=== PATIENT | male | born 1975 | race Caucasian/White ===

== ENCOUNTER 2021-07-25 11:48 | Inpatient (IN) | payer MEDICARE, OTHER ==
--- NOTE | 2021-07-25 12:42 | ED ---
General Adult HPI - General Chief complaint: Psychiatric Symptoms Stated complaint: Mental Health Time Seen by Provider: 07/25/21 11:55 Source: patient, RN notes reviewed, old records reviewed Mode of arrival: ambulatory Limitations: no limitations - History of Present Illness Initial comments: This is a 45-year-old male who presents emergency Department in police custody. Please have petitioned the patient because she is been making suicidal statements. Patient states he doesn't feel safe outside anymore. Patient states he feels as though he a few was released to jump into the periphery. Patient states lately he has been having a difficult time sleeping and he hears a voice constantly at night. Patient states during the day he seems to be okay but anytime he lays down he can't get to sleep because his hearing his voice. Patient states he was medicated for similar symptoms years ago but he stopped taking medications and 2017. Patient denies any new physical complaints today. Patient states she does have chronic back pain but that is no different. Patient denies any recent injury. Patient denies any fever chills or cough per patient denies chest pain difficulty breathing shortness of breath. - Related Data Home Medications Medication Instructions Recorded Confirmed No Known Home Medications 07/25/21 07/25/21 Allergies Allergy/AdvReac Type Severity Reaction Status Date / Time No Known Allergies Allergy Verified 07/25/21 12:46 Review of Systems ROS Statement: Those systems with pertinent positive or pertinent negative responses have been documented in the HPI. ROS Other: All systems not noted in ROS Statement are negative. Past Medical History Additional Past Medical History / Comment(s): factor 5 History of Any Multi-Drug Resistant Organisms: None Reported Past Surgical History: No Surgical Hx Reported Past Psychological History: Schizoaffective Disorder Smoking Status: Vaper Past Alcohol Use History: None Reported Past Drug Use History: Marijuana General Exam - General Exam Comments Initial Comments: GENERAL: Patient is well-developed and well-nourished. Patient is nontoxic and well- hydrated and is in no acute distress. ENT: Neck is soft and supple. No significant lymphadenopathy is noted. Oropharynx is clear. Moist mucous membranes. Neck has full range of motion without eliciting any pain. EYES: The sclera were anicteric and conjunctiva were pink and moist. Extraocular movements were intact and pupils were equal round and reactive to light. Eyelids were unremarkable. PULMONARY: Unlabored respirations. Good breath sounds bilaterally. No audible rales rhonchi or wheezing was noted. CARDIOVASCULAR: There is a regular rate and rhythm without any murmurs gallops or rubs. ABDOMEN: Soft and nontender with normal bowel sounds. SKIN: Skin is clear with no lesions or rashes and otherwise unremarkable. NEUROLOGIC: Patient is alert and oriented x3. Cranial nerves II through XII are grossly intact. Motor and sensory are also intact. Normal speech, volume and content. Symmetrical smile. MUSCULOSKELETAL: Normal extremities with adequate strength and full range of motion. LYMPHATICS: No significant lymphadenopathy is noted PSYCHIATRIC: Patient states he is suicidal and fears for his life if he was released. Limitations: no limitations Course Vital Signs 07/25/21 11:51 Temperature 98.1 F Pulse Rate 61 Respiratory 16 Rate Blood Pressure 170/91 O2 Sat by Pulse 97 Oximetry Medical Decision Making - Medical Decision Making EPS evaluated the patient and determined the patient needed to be admitted. - Lab Data Lab Results 07/25/21 07/25/21 Range/Units 12:46 13:48 Urine Opiates Screen Not Detected (NotDetected) Ur Oxycodone Screen Not Detected (NotDetected) Urine Methadone Screen Not Detected (NotDetected) Ur Propoxyphene Screen Not Detected (NotDetected) Ur Barbiturates Screen Not Detected (NotDetected) U Tricyclic Antidepress Not Detected (NotDetected) Ur Phencyclidine Scrn Not Detected (NotDetected) Ur Amphetamines Screen Not Detected (NotDetected) U Methamphetamines Scrn Not Detected (NotDetected) U Benzodiazepines Scrn Not Detected (NotDetected) Urine Cocaine Screen Not Detected (NotDetected) U Marijuana (THC) Screen Detected H (NotDetected) Coronavirus (PCR) Not Detected (Not Detectd) Disposition Clinical Impression: Psychosis, Suicidal ideation Disposition: ADMITTED IP TO THIS HOSP Referrals: None,Stated [Primary Care Provider] - 1-2 days Time of Disposition: 14:44
[2021-07-25 13:19] LABS: Amphetamine Screen,Urine Not Detected (NotDetected); Barbiturate Screen,Urine Not Detected (NotDetected); Benzodiazepines Screen,Urine Not Detected (NotDetected); Cocaine Screen,Urine Not Detected (NotDetected); Methadone Screen, Urine Not Detected (NotDetected); Opiate Screen,Urine Not Detected (NotDetected); Oxycodone Screen, Urine Not Detected (NotDetected); Phencyclidine Screen,Urine Not Detected (NotDetected); Tricyclic Antidepressant,Urine Not Detected (NotDetected); Urn Cannabinoid Scrn Detected (NotDetected)
[2021-07-25] MEDS ORDERED: MAGNESIUM HYDROXIDE 2,400 MG/10 ML CUP PO PRN (15:46)
[2021-07-25] MEDS ORDERED: MAG HYDROX/AL HYDROX/SIMETH 30 ML CUP PO PRN (15:46)
[2021-07-25] MEDS ORDERED: LORazepam 2 MG/ML INJ IM PRN (15:49)
[2021-07-25] MEDS ORDERED: HALOPERIDOL LACTATE 5 MG/ML 1 ML VIAL IM PRN (15:50)
[2021-07-25] MEDS: LORazepam 1 MG TAB PO PRN (18:36)
--- NOTE | 2021-07-25 22:28 | P.CONS ---
History of Present Illness - Reason for Consult Consult date: 07/25/21 - History of Present Illness The patient is a 45 yo M with a PMH of lumbar radiculopathy s/p fusion, factor V leiden, emergency room with complaints of depression and suicidal ideation. The patient states that he is currently homeless, and has been having a difficult time obtaining his medications. He also reports hearing voices occasionally and was planning on hurting himself. He reports chronic long-standing lower back pain, unchanged. He denied any additional complaints. Denied chest pain, SOB, fever, cough, chills, abdominal pain, nausea, vomiting, or diarrhea. Review of systems: Pertinent positives and negatives as discussed in HPI, a complete review of systems was performed and all other systems are negative. Physical examination: General: non toxic, no distress, appears at stated age, obese Derm: no unusual rashes/lesions no unusual ecchymoses, warm, dry Head: atraumatic, normocephalic, symmetric Eyes: EOMI, no lid lag, anicteric sclera, pupils equal round reactive to light ENT: Nose and ears atraumatic, no thrush, no pharyngeal erythema Neck: No thyromegaly, no cervical lymphadenopathy, trachea midline, supple Mouth: no lip lesion, mucus membranes moist Cardiovascular: S1S2 reg, no murmur, positive posterior tibial pulse bilateral, no edema, capillary refill less than 2 seconds Lungs: CTA bilateral, no rhonchi, no rales , no accessory muscle use Abdominal: soft, nontender to palpation, no guarding, no appreciable organomegaly, normal bowel sounds Ext: no gross muscle atrophy, muscle strength 5 out of 5 in all 4 extremities grossly, no contractures, Neuro: CN II-XI grossly intact, light touch intact all 4 extremities, finger to nose within normal limits, Psych: Alert, oriented, appropriate affect Assessment/plan Chronic lower back pain -Patient advised to follow up with his outpatient pain management physician Depression with suicidal ideation -As per psychiatry Thank you for allowing us to participate in the care of this patient. We will follow peripherally. Do not hesitate to contact us with questions. Someone can be reached from the [facility] hospitalist group at all hours of the day at [phone]. Past Medical History Additional Past Medical History / Comment(s): factor 5 History of Any Multi-Drug Resistant Organisms: None Reported Past Surgical History: No Surgical Hx Reported Past Psychological History: Schizoaffective Disorder Smoking Status: Vaper Past Alcohol Use History: None Reported Past Drug Use History: Marijuana - Past Family History Mother Family Medical History: Cancer Medications and Allergies Home Medications Medication Instructions Recorded Confirmed Type No Known Home Medications 07/25/21 07/25/21 History Allergies Allergy/AdvReac Type Severity Reaction Status Date / Time No Known Allergies Allergy Verified 07/25/21 12:46 Physical Exam Vitals: Vital Signs Temp Pulse Pulse Resp BP BP Pulse Ox 07/25/21 17:27 98.7 F 73 16 104/76 07/25/21 15:00 60 18 140/80 98 07/25/21 11:51 98.1 F 61 16 170/91 97 Intake and Output 07/25/21 07/25/21 07/25/21 06:59 14:59 22:59 Other: Weight 94.801 kg Results Labs: Abnormal Lab Results - Last 24 Hours (Table) 07/25/21 Range/Units 12:46 U Marijuana (THC) Screen Detected H (NotDetected)
[2021-07-26] MEDS: LORazepam 1 MG TAB PO PRN ×2 (06:10→14:44)
[2021-07-26] MEDS ORDERED: BENZOCAINE 20 % GEL 15 GM TUBE MM PRN (07:44)
[2021-07-26 08:28] LABS: Basophils # (A) 0.1 k/uL (0-0.2); Basophils % (A) 1 %; Eosinophils # (A) 0.2 k/uL (0-0.7); Eosinophils % (A) 2 %; HCT 42.3 % (39.0-53.0); HGB 14.4 gm/dL (13.0-17.5); Lymphocytes # (A) 1.9 k/uL (1.0-4.8); Lymphocytes % (A) 22 %; MCH 31.4 pg (25.0-35.0); MCHC 34.2 g/dL (31.0-37.0); Mean Platelet Volume 7.5; Monocytes # (A) 0.5 k/uL (0-1.0); Monocytes % (A) 6 %; Neutrophils # (A) 5.8 k/uL (1.3-7.7); Neutrophils % (A) 68 %; Platelet Count 281 k/uL (150-450); RDW 13.1 % (11.5-15.5); WBC 8.6 k/uL (3.8-10.6)
[2021-07-26 08:53] LABS: ALT 17 U/L (4-49); AST 20 U/L (17-59); African American GFR (CKD) >90 (>60 ml/min/1.73 sqM); Albumin 4.1 g/dL (3.5-5.0); Alkaline Phosphatase 48 U/L (38-126); Anion Gap 8 mmol/L; Blood Urea Nitrogen 14 mg/dL (9-20); Calcium 9.4 mg/dL (8.4-10.2); Carbon Dioxide 27 mmol/L (22-30); Chloride 103 mmol/L (98-107); Glucose 91 mg/dL (74-99); Non-African American GFR(CKD) >90 (>60 ml/min/1.73 sqM); Sodium 138 mmol/L (137-145); Total Bilirubin 0.6 mg/dL (0.2-1.3)
[2021-07-26] MEDS: NICOTINE 14MG/24HR PATCH TRANSDERM SCH ×2 (09:15→18:47)
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
[2021-07-26] MEDS: DULoxetine HCL 30 MG CAPSULE.DR PO SCH (14:43)
[2021-07-26 15:10] LABS: Chol/HDL Ratio 3.02 Ratio; LDL Cholesterol,Calculated 82.3 mg/dL (0.0-131.0)
[2021-07-26] MEDS: MELATONIN 5 MG TABLET PO SCH (20:55)
[2021-07-26] MEDS ORDERED: QUEtiapine 50 MG TAB PO SCH (21:00)
[2021-07-27] MEDS: DULoxetine HCL 30 MG CAPSULE.DR PO SCH (08:26)
[2021-07-27] MEDS: NICOTINE 14MG/24HR PATCH TRANSDERM SCH (08:26)
[2021-07-27] MEDS: IBUPROFEN 600 MG TAB PO PRN (10:31)
--- NOTE | 2021-07-27 13:22 | P.PN ---
Progress Note - Text Progress Note Date: 07/27/21 Interval History: Patient was seen [wandering the hallways] and was directable and agreeable to speak with speech writer in the office. Patient claims that he is getting racing thoughts during the day. He was agreeable to Cymbalta increased for tomorrow. He claims that he is also experiencing anxiety during the day. He states that his mood has been gradually improving on medications. He states that he slept a bit better last night however was requesting other Seroquel increased to 75 mg. He continues to ramble and is tangential in his thought process. He states that he has a fair appetite. He claims that he started going to groups today. At this time patient denies any suicidal or homical ideations, intent or plan. Patient denies any auditory, visual hallucinations and denies any paranoia or delusions. Patient denies any side effects from the medications and has been compliant with meds. Mental Status Exam: General Appearance: Patient appears to have multiple tattoos stated age is alert, directable, and attempts to cooperate. Patient appears to have improving hygiene and grooming. unshaven Behavior: Patient is seated without any agitated behavior. less irritable today Speech: Patient's speech is fluent and nonpressured. Mood/Affect: Patient reports their mood is depressed and anxiuous, improving mildly, affect is congruent Suicidality/Homicidality: Patient denies having any homicidal ideation intent or plan. Denies any suicidal ideations intent or plan Perceptions: Patient denies any visual hallucinations and denies any auditory hallucinations Though content/process: [There is no evidence of any delusional thought content. rambles, is tangential, improving mildly. focused on meds Memory and concentration: AOX3, grossly intact for the purposes of this session. Judgment and insight: poor, improving mildly IMPRESSIONS: Depressive disorder unspecified, rule out bipolar depression Generalized anxiety disorder Cannabis use disorder mild Activity dependence PLAN: -Patient is admitted under voluntary status to MHU for stabilization of psychiatric symptoms and safety. Patient has signed adult voluntary form and medication consent and is placed in patient's chart. -Medications : increase Seroquel 75 mg daily at bedtime for mood stabilization/insomnia. Melatonin 5 mg daily at bedtime for sleep. Increase Cymbalta 60 mg daily for mood/anxiety. added buspar 10 mg tid prn anxiety. -Ativan and haldol PRN for agitation/aggression -NRT - nicotine patch -SW on board for discharge planning. Encourage patient to participate in groups to work on coping skills. likely discharge in 2-3 days.
[2021-07-27] MEDS: busPIRone HCl 10 MG TAB PO PRN (15:47)
[2021-07-27] MEDS: MELATONIN 5 MG TABLET PO SCH (21:04)
[2021-07-27] MEDS: QUEtiapine 25 MG TAB PO SCH (21:05)
[2021-07-28] MEDS: ACETAMINOPHEN TAB 325 MG TAB PO PRN (07:51)
[2021-07-28] MEDS: DULoxetine HCL 60 MG CAPSULE.DR PO SCH (07:51)
[2021-07-28] MEDS: busPIRone HCl 10 MG TAB PO PRN (07:52)
[2021-07-28] MEDS: NICOTINE 14MG/24HR PATCH TRANSDERM SCH (07:52)
--- NOTE | 2021-07-28 10:30 | P.PN ---
Progress Note - Text Progress Note Date: 07/28/21 Interval History: Patient was seen taking part in group this morning and was directable and agr eeable to speak with service writer advisor in the office. He claims that he is still dealing with pain and was slow walking. He states that he feels the medications have been helping his racing thoughts and mood/anxiety. He states that he is not having nightmares any longer and finding it better to sleep at night. He states that his mood has been gradually improving on medications.He claimst that he is getting alot out of group now and participating as best as he can. 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 He continues to ramble however is more logical and goal oriented today. His insight and judgment is improving. He states that he has a fair appetite. He states that he will most likely be heading back to his sisters house upon discharge,. At this time patient denies any suicidal or homical ideations, intent or plan. Patient denies any auditory, visual hallucinations and denies any paranoia or delusions. Patient denies any side effects from the medications and has been compliant with meds. Mental Status Exam: General Appearance: Patient appears to have multiple tattoos stated age is alert, directable, and attempts to cooperate. Patient appears to have improving hygiene and grooming. unshaven Behavior: Patient is seated without any agitated behavior. less irritable today Speech: Patient's speech is fluent and nonpressured. Mood/Affect: Patient reports their mood is improving mildly, affect is congruent and constricted Suicidality/Homicidality: Patient denies having any homicidal ideation intent or plan. Denies any suicidal ideations intent or plan Perceptions: Patient denies any visual hallucinations and denies any auditory hallucinations Though content/process: There is no evidence of any delusional thought content. rambles, is tangential, improving mildly. Memory and concentration: AOX3, grossly intact for the purposes of this session. Judgment and insight: improving mildly IMPRESSIONS: Depressive disorder unspecified, rule out bipolar depression Generalized anxiety disorder Cannabis use disorder mild Activity dependence PLAN: -Patient is admitted under voluntary status to MHU for stabilization of psychiatric symptoms and safety. Patient has signed adult voluntary form and medication consent and is placed in patient's chart. -Medications : Seroquel 75 mg daily at bedtime for mood stabilization/insomnia. Melatonin 5 mg daily at bedtime for sleep. Cymbalta 60 mg daily for mood/anxiety. buspar 10 mg tid prn anxiety. -Ativan and haldol PRN for agitation/aggression -NRT - nicotine patch -SW on board for discharge planning. Encourage patient to participate in groups to work on coping skills. likely discharge tomorrow.
[2021-07-28] MEDS: IBUPROFEN 600 MG TAB PO PRN (15:39)
[2021-07-28] MEDS ORDERED: PNEUMOCOCCAL VACC-PNEUMOVAX 23 25 MCG/0.5 ML VIAL IM ONE (16:19)
[2021-07-28] MEDS ORDERED: INFLUENZA VACC (6 MOS-64 YRS) 60 MCG/0.5 ML SYRINGE IM ONE (16:20)
[2021-07-28] MEDS: MELATONIN 5 MG TABLET PO SCH (20:25)
[2021-07-28] MEDS: QUEtiapine 25 MG TAB PO SCH (20:26)
[2021-07-29] MEDS: ACETAMINOPHEN TAB 325 MG TAB PO PRN (06:44)
[2021-07-29 06:52] VITALS: TEMP 97.9
[2021-07-29] MEDS: NICOTINE 14MG/24HR PATCH TRANSDERM SCH (07:59)
[2021-07-29] MEDS: DULoxetine HCL 60 MG CAPSULE.DR PO SCH (08:01)
[2021-07-29] MEDS: busPIRone HCl 10 MG TAB PO PRN (08:30)
[2021-07-29 08:40] VITALS: BP 133/78; PULSE 87; RESP 16
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
== END 2021-07-29 13:05 | disposition home or self-care (01) | DRG 885 ==
LOC: EDBD → EC 11:48 → 3MHU 15:39
PROVIDERS: ADMIT Psychiatry & Neurology Psychiatry; ATTEND Psychiatry & Neurology Psychiatry
DX: F31.30 Bipolar disorder, current episode depressed, mild or moderate severity, unspecified (principal); D68.51 Activated protein C resistance; R45.851 Suicidal ideations; F12.10 Cannabis abuse, uncomplicated; F17.200 Nicotine dependence, unspecified, uncomplicated; F25.9 Schizoaffective disorder, unspecified; F41.1 Generalized anxiety disorder; G47.00 Insomnia, unspecified; G89.29 Other chronic pain; R45.850 Homicidal ideations; Z59.00 Homelessness unspecified; Z79.899 Other long term (current) drug therapy; Z98.1 Arthrodesis status; Z20.822 Contact with and (suspected) exposure to COVID-19
CPT/HCPCS: 80053; 80061; 80306; 82075; 83036; 84443; 85025; 87635; 90686; 90732; 99285